=== PATIENT | male | born 1995 | race Caucasian/White ===

== ENCOUNTER 2021-01-18 17:41 | Emergency (ER) | payer BC ==
[~2021-01-18] VITALS: Ht 177.8 cm; Wt 68.0 kg
[2021-01-18] MEDS ORDERED: BUPR1FIL3 SL (18:05)
[2021-01-18] MEDS ORDERED: DIAZ5TAB4 PO (18:05)
[2021-01-18] MEDS ORDERED: PIPERACILLIN SODIUM/TAZOBACTAM 3.375 G in IV DEXTROSE 5% 50 ML IV ONE (19:00)
[2021-01-18] MEDS ORDERED: KETOROLAC TROMETHAMINE 30 MG INJ IVP ONE (19:00)
--- NOTE | 2021-01-18 19:27 | NUR ---
Patient discharged to home in stable condition. Written and verbal after care instructions given. Patient verbalizes understanding of instructions. Stressed follow up or return to ER for worsening s/s. PT WALKS IN STEADY GAIT.
[2021-01-18] MEDS ORDERED: AMOX-430 PO (19:33)
== END 2021-01-18 19:39 | disposition home or self-care (01) ==
LOC: ER 17:46
DX: K04.7 Periapical abscess without sinus (principal); L03.211 Cellulitis of face; S02.5XXA Fracture of tooth (traumatic), initial encounter for closed fracture; X58.XXXA Exposure to other specified factors, initial encounter; Y92.89 Other specified places as the place of occurrence of the external cause
CPT/HCPCS: 96365; 96375; 99284; J1885; J2543; A4663